=== PATIENT | male | born 1990 | race Caucasian/White ===

== ENCOUNTER 2016-06-23 03:29 | Emergency (ER) | payer OTHER ==
--- NOTE | 2016-06-23 04:42 | EDM.PDOC ---
ED HPI RENAL/ - General Chief Complaint: Genitourinary Problem Stated Complaint: UNABLE TO URINATE Time Seen by Provider: 06/23/16 03:45 Source: Reports: Patient History Limitations: Reports: No limitations - History of Present Illness INITIAL COMMENTS - FREE TEXT/NARRATIVE: 25 y.o.w.m came to the ed unable to void 3 days after hemorrhoid surgery 3 days ago. Residual U volume 600 cc. No other medical complains Symptom Onset Date: 06/22/16 Symptom Onset Time: 09:00 Timing/Duration: Reports: Day(s): Location: Reports: urethral Quality: Reports: cramping Severity: moderate Improves with: Reports: urinating Associated Symptoms: Reports: denies other symptoms - Related Data Allergies/ADRs: Allergies Allergy/AdvReac Type Severity Reaction Status Date / Time No Known Allergies Allergy Verified 06/23/16 03:45 Home Meds: Home Meds Hydrocodone/Acetaminophen [Hydrocodon-Acetaminophen 5-325] 1 tab PO Q4HR PRN [History] Past Medical History - Past Health History Medical/Surgical History: Denies Medical/Surgical History - Past Surgical History GI Surgical History: Reports: Other (see below) Other GI Surgeries/Procedures: hemorroidectomy Social & Family History - Family History Family Medical History: Noncontributory - Tobacco Use Smoking Status *Q: Never Smoker Second Hand Smoke Exposure: No - Caffeine Use Caffeine Use: Reports: Coffee, Soda - Recreational Drug Use Recreational Drug Use: No ED ROS GENERAL - Review of Systems Review Of Systems: See Below Constitutional: Reports: no symptoms HEENT: Reports: No symptoms Respiratory: Reports: No Symptoms Cardiovascular: Reports: No symptoms Endocrine: Reports: no symptoms GI/Abdominal: Reports: No symptoms : Reports: no symptoms, urinary retention Musculoskeletal: Reports: no symptoms Skin: Reports: no symptoms Neurological: Reports: No Symptoms Hematologic/Lymphatic: Reports: no symptoms Immunologic: Reports: no symptoms ED EXAM, RENAL/ - Physical Exam Exam: See Below Exam Limited By: No limitations General Appearance: alert, WD/WN, mild distress Ears: normal external exam, normal canal Nose: normal inspection, normal mucosa, no blood Throat/Mouth: Normal inspection, Normal lips, Normal teeth, Normal oropharynx Head: atraumatic, normocephalic Neck: normal inspection, supple, non-tender Respiratory/Chest: no respiratory distress, lungs clear, normal breath sounds, no accessory muscle use, chest non-tender Cardiovascular: normal peripheral pulses, regular rate, rhythm, no edema, no gallop, no JVD, no murmur, no rub GI/Abdominal: normal bowel sounds, soft, non tender, no distention (Male) Exam: Suprapubic fullness Rectal (Males) Exam: Deferred Back Exam: normal inspection, full range of motion Extremities: normal inspection, normal range of motion, non-tender, no pedal edema Neurological: alert, oriented, CN II-XII intact, normal cognition, normal gait Psychiatric: normal affect Skin Exam: Warm, Dry, Intact Lymphatic: no adenopathy Course - Vital Signs Text/Narrative:: 25 y.o.w.m came to the ed unable to void 3 days after hemorrhoid surgery 3 days ago. Residual U volume 600 cc. No other medical complains PE: Suprapubic full ness Labs: WBC 12K UA neg Bladder scanner 600cc impression: Urinary retention Tx: Noble cath. 680 cc of urine passed Reexam: Improved Plan: D/C home with f/u Last Recorded V/S: Last Vital Signs Temp 37.0 C 06/23/16 03:45 Pulse 64 06/23/16 03:45 Resp 17 06/23/16 03:45 BP 140/86 06/23/16 03:45 Pulse Ox 100 06/23/16 03:45 - Orders/Labs/Meds Labs: Laboratory Tests 06/23/16 06/23/16 06/23/16 Range/Units 03:55 03:55 04:00 WBC 12.1 H (4.5-12.0) X10-3/uL RBC 4.30 (4.30-5.75) x10(6)uL Hgb 12.8 (11.5-15.5) g/dL Hct 37.1 (30.0-51.3) % MCV 86.3 (80-96) fL MCH 29.7 (27.7-33.6) pg MCHC 34.5 (32.2-35.4) g/dL RDW 12.9 (11.5-15.5) % Plt Count 217 (125-369) X10(3)uL MPV 8.9 (7.4-10.4) fL Neut % (Auto) 79.9 (46-82) % Lymph % (Auto) 11.0 L (13-37) % [place] % (Auto) 8.3 (4-12) % Eos % (Auto) 0 L (1.0-5.0) % Baso % (Auto) 1 (0-2) % Neut # (Auto) 9.7 H (1.6-8.3) # Lymph # (Auto) 1.3 (0.6-5.0) # [place] # (Auto) 1.0 (0.0-1.3) # Eos # (Auto) 0.0 (0.0-0.8) # Baso # (Auto) 0.1 (0.0-0.2) # Sodium 136 (135-145) mmol/L Potassium 3.8 (3.5-5.3) mmol/L Chloride 104 (100-110) mmol/L Carbon Dioxide 23 (23-29) mmol/L BUN 13 (5-20) mg/dL Creatinine 0.9 (0.6-1.3) mg/dL Est Cr Clr Drug Dosing TNP Estimated GFR (MDRD) > 60 (>60) BUN/Creatinine Ratio 14.4 (9-20) Glucose 135 H (80-116) mg/dL Calcium 9.1 (8.6-10.2) mg/dL Urine Color Yellow (YELLOW) Urine Appearance Clear (CLEAR) Urine pH 6.0 (5.0-6.5) Ur Specific Myton 1.015 (1.010-1.025) Urine Protein Negative (NEGATIVE) mg/dL Urine Glucose (UA) Normal (NEGATIVE) mg/dL Urine Ketones Negative (NEGATIVE) mg/dL Urine Occult Blood Negative (NEGATIVE) Urine Nitrite Negative (NEGATIVE) Urine Bilirubin Negative (NEGATIVE) Urine Urobilinogen Normal (NEGATIVE) mg/dL Ur Leukocyte Esterase Negative (NEGATIVE) Urine RBC 0-5 (0) Urine WBC Not seen (0) Ur Squamous Epith Cells Not seen (NS,R,O) Urine Bacteria Rare H (NS) Departure - Departure Time of Disposition: 04:47 Disposition: Home, Self-Care 01 Condition: good Clinical Impression: Urinary retention Referrals: PCP,None [Primary Care Provider] - Forms: ED Department Discharge Additional Instructions: Please f/u with your PMD, please come back if your symptoms get worse acutely
[2016-06-23 05:01] VITALS: BP 132/73
== END 2016-06-23 04:55 | disposition home or self-care (01) ==
LOC: FB.ED 03:29
DX: R33.9 Retention of urine, unspecified (principal); Z98.890 Other specified postprocedural states
CPT/HCPCS: 36415; 51702; 51798; 80048; 81001; 85025; 99283

== ENCOUNTER 2017-01-23 15:34 | Emergency (ER) | payer OTHER ==
[2017-01-23] MEDS ORDERED: Lidocaine 1% 20 ML MDV INFILT ONE (15:35)
--- NOTE | 2017-01-23 16:03 | EDM.PDOC ---
ED HPI GENERAL MEDICAL PROBLEM - General Chief Complaint: Laceration Stated Complaint: laceration forehead Time Seen by Provider: 01/23/17 15:37 Source of Information: Reports: Patient History Limitations: Reports: No Limitations - History of Present Illness INITIAL COMMENTS - FREE TEXT/NARRATIVE: 26 y.o.w.m in prev healthy condition came to the ed after he collided with another basket ball player and injured his R forehead, no LOC. Last tetanus 5 years ago. No other acute medical issues. BP 139/76 Pulse 71 RR 18 Temp 36.1 Pulse ox 100 on RA. 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 Above R eye Pain Score (Numeric/FACES): 3 - Related Data Allergies Allergy/AdvReac Type Severity Reaction Status Date / Time No Known Allergies Allergy Verified 01/23/17 15:53 Home Meds: Home Meds NK [No Known Home Meds] 01/23/17 [History] Past Medical History - Past Health History Medical/Surgical History: Denies Medical/Surgical History - Past Surgical History GI Surgical History: Reports: Other (See Below) Social & Family History - Family History Family Medical History: Noncontributory - Tobacco Use Smoking Status *Q: Never Smoker Second Hand Smoke Exposure: No - Caffeine Use Caffeine Use: Reports: Coffee, Soda - Recreational Drug Use Recreational Drug Use: No ED ROS GENERAL - Review of Systems Review Of Systems: See Below Constitutional: Reports: No Symptoms HEENT: Reports: Other (LAC r forehead) Respiratory: Reports: No Symptoms Cardiovascular: Reports: No Symptoms Endocrine: Reports: No Symptoms GI/Abdominal: Reports: No Symptoms : Reports: No Symptoms Musculoskeletal: Reports: No Symptoms Skin: Reports: No Symptoms Neurological: Reports: No Symptoms Psychiatric: Reports: No Symptoms Hematologic/Lymphatic: Reports: No Symptoms Immunologic: Reports: No Symptoms ED EXAM, SKIN/RASH Exam: See Below Exam Limited By: No Limitations General Appearance: Alert, WD/WN, Mild Distress Eye Exam: Bilateral Eye: EOMI, Normal Inspection, PERRL Ears: Normal External Exam Nose: Normal Inspection Throat/Mouth: Normal Inspection, Normal Lips Head: Other (LAC right forehead) Neck: Normal Inspection, Supple, Non-Tender, Full Range of Motion Respiratory/Chest: No Respiratory Distress, Lungs Clear, Normal Breath Sounds, No Accessory Muscle Use, Chest Non-Tender Cardiovascular: Normal Peripheral Pulses, Regular Rate, Rhythm Peripheral Pulses: 1+: Radial (L), Radial (R) GI/Abdominal: Normal Bowel Sounds, Soft, Non-Tender, No Organomegaly (Male) Exam: Deferred Rectal (Males) Exam: Deferred Back Exam: Normal Inspection, Full Range of Motion Extremities: Normal Inspection, Normal Range of Motion, Non-Tender, No Pedal Edema Neurological: Alert, Oriented, CN II-XII Intact, Normal Cognition, Normal Gait, No Motor/Sensory Deficits Psychiatric: Normal Affect, Normal Mood Skin: Warm, Dry, Normal Color, No Rash, Wound/Incision (Laceration R forehead) Location, Skin: Face Associated features: Warmth Lymphatic: No Adenopathy ED SKIN PROCEDURES - Laceration/Wound Repair Right Forehead Lac/Wound length In cm: 1.2 Appearance: Superficial, Clean Distal NVT: Neuro & Vascular Intact Anesthetic Type: Local Local Anesthesia - Lidocaine (Xylocaine): 1% Plain Local Anesthetic Volume: 1cc Skin Prep: Chlorhexidine (Hibiciens) Saline Irrigation (cc's): 2 Exploration/Debridement/Repair: Wound Explored, In a Bloodless Field, Explored to Base Suture Size: other (5-0) # of Sutures: 3 Suture Type: Interrupted, Other (absorbable sutures, Valcryl) Sterile Dressing Applied: Nurse Tetanus Status Addressed: Other (5 years ago) Complications: No Course - Vital Signs Text/Narrative:: 26 y.o.w.m in prev healthy condition came to the ed after he collided with another basket ball player and injured his R forehead, no LOC. Last tetanus 5 years ago. No other acute medical issues. BP 139/76 Pulse 71 RR 18 Temp 36.1 Pulse ox 100 on RA. PE: Laceration R forehead Procedure note: Please see above Impression: LAC right forehead, repaired in the ed Tx: Wound care Reexam: Improved Plan: D/C with instructions Last Recorded V/S: Last Vital Signs Temp 36.7 C 01/23/17 15:37 Pulse 71 01/23/17 15:37 Resp 18 01/23/17 15:37 BP 135/78 01/23/17 15:37 Pulse Ox 100 01/23/17 15:37 Departure - Departure Time of Disposition: 16:03 Disposition: Home, Self-Care 01 Condition: Good Clinical Impression: Laceration of head Qualifiers: Encounter type: initial encounter Location of open wound of head: scalp Foreign body presence: without foreign body Qualified Code(s): S01.01XA - Laceration without foreign body of scalp, initial encounter - Discharge Information Instructions: Head Injury, Adult, [id number], Sutured Wound Care, Easy-to- Read Referrals: PCP,None [Ordering Only Provider] - Forms: ED Department Discharge Additional Instructions: Please follow up for wound check in 2-3 days at clinic, please come back if your symptoms worsen acutely, please apply neosporine to wound twice daily for 5 days. Motrin for pain as needed.
[2017-01-23 16:32] VITALS: BP 114/73
== END 2017-01-23 16:24 | disposition home or self-care (01) ==
LOC: FB.ED 15:34
DX: S01.81XA Laceration without foreign body of other part of head, initial encounter (principal); W51.XXXA Accidental striking against or bumped into by another person, initial encounter; Y93.67 Activity, basketball
CPT/HCPCS: 12001; 99282; A4217